=== PATIENT | female | born 1980 ===

== ENCOUNTER 2017-02-17 13:00 | Emergency (ER) | payer OTHER ==
[2017-02-17 13:13] VITALS: BP 140/81; PULSE 74; RESP 16; TEMP 98.4; O2SAT 100
[2017-02-17] MEDS ORDERED: Lidocaine 1% (10 ml) Inj INFIL STA (13:39)
[2017-02-17] MEDS ORDERED: Lidocaine 1% Inj (20ml) ONE (13:48)
--- NOTE | 2017-02-17 14:31 | ED PDOC ---
HPI: Wound Care - HPI Time Seen by Provider: 02/17/17 13:15 Chief Complaint (Nursing): Upper Extremity Problem/Injury Chief Complaint (Provider): Right Finger Laceration History Per: Patient History Of Present Illness: Flavia Byers, a 36 year old female presents to the ED with a laceration to her right index finger. The patient reports that she cut her finger on a piece of metal. Tetanus up to date. Exam Limitations: no limitations Onset/Duration Of Symptoms: Hrs Current Symptoms Are (Timing): Still Present Location Of Injury: Right: Hand (Lateral Right Middle finger laceration) Past Medical History Reviewed: Historical Data, Nursing Documentation, Vital Signs Vital Signs: Last Vital Signs Temp 98.4 F 02/17/17 13:09 Pulse 74 02/17/17 13:09 Resp 16 02/17/17 13:09 BP 140/81 02/17/17 13:09 Pulse Ox 100 02/17/17 13:09 - Medical History PMH: No Chronic Diseases - Surgical History Surgical History: No Surg Hx - Family History Family History: States: Unknown Family Hx - Living Arrangements Living Arrangements: With Family - Immunization History Hx Tetanus Toxoid Vaccination: Yes - Home Medications Home Medications: Ambulatory Orders Medication Instructions Recorded Cephalexin [Keflex] 500 mg PO BID #20 capsule 02/17/17 - Allergies Allergies/Adverse Reactions: Allergies Allergy/AdvReac Type Severity Reaction Status Date / Time No Known Allergies Allergy Verified 02/17/17 13:36 Review of Systems Musculoskeletal: Positive for: Other (Laceration to right middle finger.) Physical Exam - Reviewed Nursing Documentation Reviewed: Yes Vital Signs Reviewed: Yes - Physical Exam Appears: Positive for: Non-toxic, No Acute Distress Skin: Positive for: Normal Color, Warm, Dry. Negative for: Rash Extremity: Positive for: Normal ROM, Other (4cm laceration to righ tlateral middle finger.). Negative for: Tenderness (No tenderness to right middle finger ), Deformity (no deformity to right middle finger), Swelling (No swelling to right middle finger.) Neurologic/Psych: Positive for: Alert, Oriented - ECG O2 Sat by Pulse Oximetry: 100 Procedure: Wound Repair - Time Performed Time Performed: 14:00 - Time Out Time Out: Side verified (1415), Site verified, Patient ID confirmed, Sterile procedures obs. - Procedure Procedure: Wound Repair: Laceration Repair - Consent Obtained Consent obtained: Verbal - Performed by Performed by: Mid-level Provider (Angelique Chávez PA-C) - Indications Indication(s):: Laceration - Location Finger:: Right, Middle Dimensions Length cm: 4cm - Anesthetic Technique Local/Regional Anesthetic:: Lidocaine 1% - Debris Debris:: None - Complexity Complexity:: Simple (one layer) - Wound repair method Sutures:: # (6), Size (5-0), Type (Nylon) - Patient tolerated procedure Patient Tolerated Procedure:: Well Medical Decision Making Medical Decision Makin Initial Impression: 36 year old female presenting with laceration to right middle finger Initial Plan: * Lidocain 1% 5ml INFIL 1415 Laceration repair was performed. Patient tolerated procedure well with with no complications. See procedure note for details. Scribe Attestation Documented by Joycelyn Vogt acting as a scribe for Angelique Chávez PA-C. Scribe Attestation All medical record entries made by the Scribe were at my direction and personally dictated by me. I have reviewed the chart and agree that the record accurately reflects my personal performance of the history, physical exam, medical decision making, and the department course for this patient. I have also personally directed, reviewed, and agree with the discharge instructions and disposition. Disposition - Clinical Impression Clinical Impression: Finger laceration - Patient ED Disposition Is Patient to be Admitted: No - Disposition Disposition: Routine/Home Disposition Time: 14:39 Condition: GOOD Additional Instructions: Do not get wet for 24 hours. Keep clean and dry with antibiotic ointment. Suture removal in 8-10 days. Antibiotics as prescribed. Return for any worsening pain, redness, drainage. Prescriptions: Cephalexin [Keflex] 500 mg PO BID #20 capsule Instructions: Care For Your Stitches (ED), Laceration (ED) Print Language: [place]
== END 2017-02-17 15:13 | disposition home or self-care (01) ==
LOC: H.ER 13:00
DX: S61.212A Laceration without foreign body of right middle finger without damage to nail, initial encounter (principal); W26.8XXA Contact with other sharp object(s), not elsewhere classified, initial encounter; Y92.89 Other specified places as the place of occurrence of the external cause